=== PATIENT | female | born 1945 | race Asian ===

== ENCOUNTER 2023-07-16 08:28 | Day surgery (SDC) | payer OTHER ==
[2023-07-10 14:25] VITALS: BMI 26.5
[2023-07-16] MEDS ORDERED: BSS (NA/CA/MG/K) BALANCED SALT SOLUTION OPHTH SOLN 15 ML BOTTLE ONE (10:15)
[2023-07-16] MEDS ORDERED: NEO/POLYMYX B SULF/DEXAMETH OPHTHALMIC 5ML BOTTLE ONE (10:15)
[2023-07-16] MEDS ORDERED: LIDOCAINE 1% P/F 10 MG/ML VIAL ONE (10:15)
[2023-07-16] MEDS ORDERED: TETRACAINE 0.5% OPHTH SOLN 2 ML BOTTLE ONE (10:15)
[2023-07-16] MEDS ORDERED: CARBACHOL 0.01% INTRA-OCULAR 1.5 ML VIAL ONE (10:15)
[2023-07-16] MEDS: TROPICAMIDE 1% OPHTH SOLN 15 ML BOTTLE ONE ×3 (10:35→10:45)
[2023-07-16] MEDS: CYCLOPENTOLATE 2% OPHTH SOLN 2 ML BOTTLE ONE ×3 (10:35→10:45)
[2023-07-16] MEDS: CIPROFLOXACIN 0.3% EYE DROPS 5 ML BOTTLE ONE ×3 (10:35→10:45)
[2023-07-16] MEDS: PHENYLEPHRINE 2.5% OPTHALMIC DROP 2ML BOTTLE ONE ×3 (10:35→10:45)
[2023-07-16 10:38] VITALS: RESP 16
[2023-07-16] MEDS ORDERED: MIDAZOLAM HCL 2 MG/2 ML SINGLE DOSE VIAL ONE (12:05)
[2023-07-16 13:54] VITALS: TEMP 97.9
[2023-07-16 13:58] VITALS: BP 99/65; PULSE 68
== END 2023-07-16 13:15 ==
LOC: FASU 08:28
PROVIDERS: ATTEND Ophthalmology
PROC: 08RJ3JZ Replacement of Right Lens with Synthetic Substitute, Percutaneous Approach (ICD-10-PCS; principal; 2023-07-16 12:08)
DX: H26.8 Other specified cataract (principal)
CPT/HCPCS: 66984; V2632

== ENCOUNTER 2023-09-19 16:15 | Inpatient (IN) | payer OTHER ==
[2023-09-19 16:50] VITALS: BMI 21.1
[2023-09-19 18:32] LABS: BASO % 0.3 % (0-2.0); EOS % 0.7 % (0-4.5); HEMATOCRIT 42.5 % (32.4-45.2); HEMOGLOBIN 14.2 GM/dL (10.7-15.3); LYMPH % 12.4 % (8-40); MCH 30.1 pg (25.7-33.7); MCHC 33.5 g/dl (32.0-36.0); MEAN CELL VOLUME 89.7 fl (80-96); MEAN PLT VOLUME 7.3 fl (7.5-11.1); MONO % 8.8 % (3.8-10.2); NEUT % 77.8 % (42.8-82.8); PLATELET COUNT 172 10^3/uL (134-434); RBC 4.73 M/mm3 (3.60-5.2); RDW 14.7 % (11.6-15.6); WHITE BLOOD COUNT 8.5 K/mm3 (4.0-10.0)
[2023-09-19 18:40] LABS: INR 1.13 (0.83-1.09); PROTHROMBIN TIME (PATIENT) 13.1 SEC (9.7-13.0)
[2023-09-19 18:48] LABS: POTASSIUM 4.4 mmol/L (3.5-5.1)
[2023-09-19 18:51] LABS: ALBUMIN 3.4 g/dl (3.4-5.0); BLOOD UREA NITROGEN 39.8 mg/dL (7-18)
[2023-09-19 18:54] LABS: CREATININE 1.7 mg/dL (0.55-1.3)
[2023-09-19 18:56] LABS: BILIRUBIN,TOTAL 0.5 mg/dL (0.2-1); TOT PROT 6.3 g/dl (6.4-8.2)
[2023-09-19] MEDS: SODIUM CHLORIDE 1,000 ML IV STA (22:12)
[2023-09-19] MEDS: APIXABAN 2.5 MG TABLET PO SCH (22:12)
[2023-09-19] MEDS: DONEPEZIL HCL 10 MG TABLET (FP) PO SCH (22:12)
[2023-09-19] MEDS: INSULIN ASPART SLIDING SCALE (NOVOLOG) 1 VIAL SQ SCH (22:13)
[2023-09-19] MEDS ORDERED: DONEPEZIL HCL 5 MG TABLET (FP) ONE (22:14)
[2023-09-19] MEDS ORDERED: APIXABAN 2.5 MG TABLET ONE (22:14)
[2023-09-20 08:57] LABS: BASO % 0.3 % (0-2.0); HEMATOCRIT 41.3 % (32.4-45.2); LYMPH % 21.3 % (8-40); MCH 30.5 pg (25.7-33.7); MCHC 33.8 g/dl (32.0-36.0); MEAN PLT VOLUME 7.7 fl (7.5-11.1); MONO % 10.5 % (3.8-10.2); NEUT % 61.9 % (42.8-82.8); PLATELET COUNT 161 10^3/uL (134-434); RBC 4.59 M/mm3 (3.60-5.2); RDW 14.6 % (11.6-15.6)
[2023-09-20 09:11] LABS: POTASSIUM 3.7 mmol/L (3.5-5.1)
[2023-09-20 09:20] LABS: CALCIUM 8.7 mg/dL (8.5-10.1)
[2023-09-20 09:21] LABS: BLOOD UREA NITROGEN 35.2 mg/dL (7-18); MAGNESIUM 2.3 mg/dL (1.8-2.4)
[2023-09-20 09:24] LABS: CREATININE 1.4 mg/dL (0.55-1.3)
[2023-09-20 09:25] LABS: BILIRUBIN,TOTAL 0.8 mg/dL (0.2-1)
[2023-09-20 09:26] LABS: TOT PROT 5.7 g/dl (6.4-8.2)
[2023-09-20] MEDS: metoPROLOL SUCCINATE 25 MG TAB.SR.24H (FP) PO SCH (10:29)
[2023-09-21] MEDS: ACETAMINOPHEN 325 MG TABLET (FP) PO PRN (11:46)
[2023-09-21 16:03] VITALS: RESP 18
[2023-09-22 10:06] LABS: BASO % 0.2 % (0-2.0); HEMATOCRIT 45.3 % (32.4-45.2); HEMOGLOBIN 15.4 GM/dL (10.7-15.3); LYMPH % 17.1 % (8-40); MCH 30.6 pg (25.7-33.7); MEAN CELL VOLUME 89.8 fl (80-96); MEAN PLT VOLUME 7.7 fl (7.5-11.1); MONO % 7.5 % (3.8-10.2); NEUT % 71.2 % (42.8-82.8); PLATELET COUNT 176 10^3/uL (134-434); RBC 5.04 M/mm3 (3.60-5.2); RDW 14.6 % (11.6-15.6); WHITE BLOOD COUNT 8.8 K/mm3 (4.0-10.0)
[2023-09-22 10:24] LABS: POTASSIUM 4.5 mmol/L (3.5-5.1)
[2023-09-22 10:45] LABS: ALBUMIN 3.4 g/dl (3.4-5.0); CALCIUM 9.4 mg/dL (8.5-10.1)
[2023-09-22 10:47] LABS: BLOOD UREA NITROGEN 24.7 mg/dL (7-18)
[2023-09-22 10:51] LABS: BILIRUBIN,TOTAL 1.1 mg/dL (0.2-1); TOT PROT 6.5 g/dl (6.4-8.2)
[2023-09-22 10:55] LABS: CREATININE 1.5 mg/dL (0.55-1.3)
[2023-09-22 18:49] VITALS: BP 102/69; PULSE 99; TEMP 98.2
== END 2023-09-22 19:45 | DRG 699 ==
LOC: JER 16:15 → JERBED 20:40 → J8W 23:02
PROVIDERS: ADMIT Internal Medicine; ATTEND Internal Medicine
PROC: 0T2BX0Z Change Drainage Device in Bladder, External Approach (ICD-10-PCS; principal; 2023-09-22)
DX: T83.091A Other mechanical complication of indwelling urethral catheter, initial encounter (principal); I13.0 Hypertensive heart and chronic kidney disease with heart failure and stage 1 through stage 4 chronic kidney disease, or unspecified chronic kidney disease; N17.9 Acute kidney failure, unspecified; I50.22 Chronic systolic (congestive) heart failure; I42.0 Dilated cardiomyopathy; I48.91 Unspecified atrial fibrillation; N31.9 Neuromuscular dysfunction of bladder, unspecified; I25.10 Atherosclerotic heart disease of native coronary artery without angina pectoris; N18.9 Chronic kidney disease, unspecified; R33.9 Retention of urine, unspecified; Y84.8 Other medical procedures as the cause of abnormal reaction of the patient, or of later complication, without mention of misadventure at the time of the procedure
CPT/HCPCS: 0241U-QW; 36415; 70450-TC; 74176-TC; 75984-FY; 80053; 82550; 82962; 83735; 84443; 84484; 85025; 85610; 86850; 86900; 86901; 87070; 87075; 87102; 87116; 87186; 87205; 87206; 87210; 93005; 93010; 99285-25

== ENCOUNTER 2023-09-24 09:43 | Day surgery (SDC) | payer OTHER ==
[2023-09-24] MEDS ORDERED: NEO/POLYMYX B SULF/DEXAMETH OPHTHALMIC 5ML BOTTLE ONE (11:02)
[2023-09-24] MEDS ORDERED: TETRACAINE 0.5% OPHTH SOLN 2 ML BOTTLE ONE (11:02)
[2023-09-24] MEDS ORDERED: BSS (NA/CA/MG/K) BALANCED SALT SOLUTION OPHTH SOLN 15 ML BOTTLE ONE (11:02)
[2023-09-24] MEDS ORDERED: LIDOCAINE 1% P/F 10 MG/ML VIAL ONE (11:02)
[2023-09-24] MEDS ORDERED: CARBACHOL 0.01% INTRA-OCULAR 1.5 ML VIAL ONE (11:02)
[2023-09-24] MEDS: TROPICAMIDE 1% OPHTH SOLN 15 ML BOTTLE ONE (11:05)
[2023-09-24] MEDS: CYCLOPENTOLATE 2% OPHTH SOLN 2 ML BOTTLE ONE (11:05)
[2023-09-24] MEDS: CIPROFLOXACIN 0.3% EYE DROPS 5 ML BOTTLE ONE (11:05)
[2023-09-24] MEDS: PHENYLEPHRINE 2.5% OPTHALMIC DROP 2ML BOTTLE ONE (11:05)
[2023-09-24 11:13] VITALS: BMI 25.7
[2023-09-24] MEDS ORDERED: MIDAZOLAM HCL 2 MG/2 ML SINGLE DOSE VIAL ONE (12:14)
[2023-09-24] MEDS ORDERED: KETOROLAC TROMETHAMINE 30 MG/1 ML VIAL ONE (12:57)
[2023-09-24 13:54] VITALS: RESP 19; TEMP 97.8
[2023-09-24 13:57] VITALS: BP 118/79; PULSE 72
== END 2023-09-24 13:58 ==
LOC: FASU 09:43
PROVIDERS: ATTEND Ophthalmology
PROC: 08RK3JZ Replacement of Left Lens with Synthetic Substitute, Percutaneous Approach (ICD-10-PCS; principal; 2023-09-24 13:06)
DX: H26.8 Other specified cataract (principal)
CPT/HCPCS: 66984; V2632

== ENCOUNTER 2024-01-25 12:37 | Inpatient (IN) | payer OTHER ==
[2024-01-25 12:49] VITALS: BMI 21.7
[2024-01-25 13:59] LABS: BASO % 0.6 % (0-2.0); EOS % 5.3 % (0-4.5); HEMATOCRIT 43.2 % (32.4-45.2); HEMOGLOBIN 14.4 GM/dL (10.7-15.3); LYMPH % 31.8 % (8-40); MCH 30.2 pg (25.7-33.7); MCHC 33.4 g/dl (32.0-36.0); MEAN CELL VOLUME 90.2 fl (80-96); MEAN PLT VOLUME 7.3 fl (7.5-11.1); MONO % 8.7 % (3.8-10.2); NEUT % 53.6 % (42.8-82.8); PLATELET COUNT 162 10^3/uL (134-434); RBC 4.79 M/mm3 (3.60-5.2); WHITE BLOOD COUNT 7.6 K/mm3 (4.0-10.0)
[2024-01-25 14:11] LABS: INR 1.16 (0.83-1.09); PROTHROMBIN TIME (PATIENT) 13.1 SEC (9.7-13.0)
[2024-01-25 14:14] LABS: ACTIVATED PTT 38.9 SECONDS (25.2-36.5)
[2024-01-25 14:21] LABS: POTASSIUM 5.2 mmol/L (3.5-5.1)
[2024-01-25 14:23] LABS: ALBUMIN 3.4 g/dl (3.4-5.0); BLOOD UREA NITROGEN 31.6 mg/dL (7-18); CALCIUM 9.2 mg/dL (8.5-10.1)
[2024-01-25 14:26] LABS: CREATININE 1.5 mg/dL (0.55-1.3)
[2024-01-25 14:28] LABS: BILIRUBIN,TOTAL 0.5 mg/dL (0.2-1); TOT PROT 6.4 g/dl (6.4-8.2)
[2024-01-26 07:52] LABS: BASO % 0.4 % (0-2.0); EOS % 7.1 % (0-4.5); HEMATOCRIT 41.4 % (32.4-45.2); HEMOGLOBIN 14.2 GM/dL (10.7-15.3); LYMPH % 35.5 % (8-40); MCH 30.3 pg (25.7-33.7); MCHC 34.2 g/dl (32.0-36.0); MEAN CELL VOLUME 88.8 fl (80-96); MEAN PLT VOLUME 7.6 fl (7.5-11.1); MONO % 8.8 % (3.8-10.2); NEUT % 48.2 % (42.8-82.8); PLATELET COUNT 166 10^3/uL (134-434); POTASSIUM 4.4 mmol/L (3.5-5.1); RBC 4.67 M/mm3 (3.60-5.2); RDW 13.9 % (11.6-15.6); WHITE BLOOD COUNT 6.1 K/mm3 (4.0-10.0)
[2024-01-26 07:56] LABS: ALBUMIN 3.4 g/dl (3.4-5.0); CALCIUM 8.7 mg/dL (8.5-10.1)
[2024-01-26 07:57] LABS: BLOOD UREA NITROGEN 30.1 mg/dL (7-18)
[2024-01-26 08:00] LABS: CREATININE 1.5 mg/dL (0.55-1.3)
[2024-01-26 08:01] LABS: BILIRUBIN,TOTAL 0.8 mg/dL (0.2-1); TOT PROT 6.1 g/dl (6.4-8.2)
[2024-01-26] MEDS: APIXABAN 2.5 MG TABLET PO SCH (09:40)
[2024-01-26] MEDS: metoPROLOL SUCCINATE 25 MG TAB.SR.24H (FP) PO SCH (09:40)
[2024-01-26] MEDS: POLYETHYLENE GLYCOL (HEALTHYLAX) 3350 17 GM PACKET PO SCH (09:40)
[2024-01-26] MEDS: DONEPEZIL HCL 10 MG TABLET (FP) PO SCH (22:24)
[2024-01-28 07:02] LABS: HEMATOCRIT 42.2 % (32.4-45.2); HEMOGLOBIN 14.3 GM/dL (10.7-15.3); MCH 30.3 pg (25.7-33.7); MCHC 33.8 g/dl (32.0-36.0); MEAN CELL VOLUME 89.5 fl (80-96); MEAN PLT VOLUME 7.6 fl (7.5-11.1); PLATELET COUNT 164 10^3/uL (134-434); RBC 4.71 M/mm3 (3.60-5.2); WHITE BLOOD COUNT 5.9 K/mm3 (4.0-10.0)
[2024-01-28 07:17] LABS: POTASSIUM 4.4 mmol/L (3.5-5.1)
[2024-01-28 07:19] LABS: BLOOD UREA NITROGEN 30.6 mg/dL (7-18); CALCIUM 8.7 mg/dL (8.5-10.1)
[2024-01-28 07:23] LABS: CREATININE 1.5 mg/dL (0.55-1.3)
[2024-01-28] MEDS: metoPROLOL SUCCINATE 25 MG TAB.SR.24H (FP) PO SCH (09:52)
[2024-01-28 15:18] VITALS: BP 107/87; PULSE 95; RESP 17; TEMP 98.4
== END 2024-01-28 15:08 | DRG 699 ==
LOC: JER 12:37 → JERBED 16:37 → OBSVTOIN 01-26 03:57 → J7W 01-27 04:23
PROVIDERS: ADMIT Family Medicine; ATTEND Family Medicine
PROC: 0T2BX0Z Change Drainage Device in Bladder, External Approach (ICD-10-PCS; principal; 2024-01-27)
DX: T83.020A Displacement of cystostomy catheter, initial encounter (principal); I50.22 Chronic systolic (congestive) heart failure; R33.9 Retention of urine, unspecified; F03.90 Unspecified dementia, unspecified severity, without behavioral disturbance, psychotic disturbance, mood disturbance, and anxiety; N18.9 Chronic kidney disease, unspecified; I48.91 Unspecified atrial fibrillation; Y83.9 Surgical procedure, unspecified as the cause of abnormal reaction of the patient, or of later complication, without mention of misadventure at the time of the procedure
CPT/HCPCS: 36415; 74176-TC; 80048; 80053; 85025; 85027; 85610; 85730; 86850; 86900; 86901; 87635; 99285-25; G0378